=== PATIENT | male | born 2000 | race Caucasian/White ===

== ENCOUNTER 2024-08-03 09:13 | Inpatient (IN) | payer MEDICAID, OTHER ==
[~2024-08-03] VITALS: Ht 170.2 cm; Wt 70.4 kg
--- NOTE | 2024-08-03 09:55 | ED.PDOC ---
History of Present Illness HPI Comments 24-year-old male presents with a chief complaint of dizzy spells. Patient mentions that his dizziness that he feels is positional, mostly when getting up and when at work. Patient mentions that the last time was today when he experienced these episodes, and reports that he "passed out" and was "out of it" for a little while. Chief Complaint: Dizziness Time Seen by MD: 09:31 Primary Care Provider: NONE Reviewed Notes: Medications, Allergies Allergies: Uncoded Allergies: POLLEN (Allergy, Unknown, 08/03/24) Information Source: Patient Mode of Arrival: Ambulatory Severity: Moderate Timing: Days Duration: Intermittent Prehospital treatment: None Past Medical History PAST MEDICAL HISTORY: Denies Surgical History: Denies all surgeries Family History Family History: Reviewed,noncontributory to illness Social History Smoker: Non-Smoker Alcohol: Denies ETOH Use Drugs: Denies Drug Use Lives In: Home Constitutional: denies: chills, diaphoresis, fatigue, fever, malaise, sweats, weakness, others EENTM: denies: blurred vision, double vision, ear bleeding, ear discharge, ear drainage, ear pain, ear ringing, eye pain, eye redness, hearing loss, mouth pain, mouth swelling, nasal discharge, nose bleeding, nose congestion, nose pain, photophobia, tearing, throat pain, throat swelling, voice changes, others Respiratory: denies: cough, hemoptysis, orthopnea, SOB at rest, shortness of breath, SOB with excertion, stridor, wheezing, others Cardiovascular: reports: dizzy spells; denies: chest pain, diaphoresis, Dyspnea on exertion, edema, irregular heart beat, left arm pain, lightheadedness, palpitations, PND, syncope, others Gastrointestinal: denies: abdomen distended, abdominal pain, blood streaked bowels, constipated, diarrhea, dysphagia, difficulty swallowing, hematemesis, melena, nausea, poor appetite, poor fluid intake, rectal bleeding, rectal pain, vomiting, others Genitourinary: denies: burning, dysuria, flank pain, frequency, hematuria, incontinence, penile discharge, penile sore, pain, testicle pain, testicle swelling, urgency, others Neurological: denies: dizziness, fainting, headache, left sided numbness, left sided weakness, numbness, paresthesia, pre-existing deficit, right sided numbness, right sided weakness, seizure, speech problems, tingling, tremors, weakness, others Musculoskeletal: denies: back pain, gout, joint pain, joint swelling, muscle pain, muscle stiffness, neck pain, others Integumetry: denies: bruises, change in color, change in hair/nails, dryness, laceration, lesions, lumps, rash, wounds, others Allergic/Immunocompromised: denies: Difficulty Healing, Frequent Infections, Hives, Itching, others Hematologic/Lymphatic: denies: anemia, blood clots, easy bleeding, easy bruising, swollen glands, others Endocrine: denies: excessive hunger, excessive sweating, excessive thirst, excessive urination, flushing, intolerance to cold, intolerance to heat, unexplained weight gain, unexplained weight loss, others Psychiatric: denies: anxiety, bipolar disorder, depression, hopeless, panic disorder, schizophrenia, sleepless, suicidal, others All Other Systems: Reviewed and Negative Physical Exam General Appearance: No Apparent Distress, Normal HEENT: Normal ENT Inspection, Pharynx Normal, TMs Normal Neck: Full Range of Motion, Non-Tender, Normal, Normal Inspection Respiratory: Chest Non-Tender, Lungs Clear, No Accessory Muscle Use, No Respiratory Distress, Normal Breath Sounds Cardiovascular: No Edema, No JVD, No Murmur, No Gallop, Normal Peripheral Pulses, Regular Rate/Rhythm Breast Exam: Deferred Gastrointestinal: No Organomegaly, Non Tender, No Pulsatile Mass, Normal Bowel Sounds, Soft Genitalia: Deferred Pelvic: Deferred Rectal: Deferred Extremities: No calf tenderness, Normal capillary refill, Normal inspection, Normal range of motion, Non-tender, No pedal edema Musculoskeletal : Apperance: Normal Neurologic: Alert, risk control officer II-XII nml as Tested, No Motor Deficits, Normal Affect, Normal Mood, No Sensory Deficits Cerebellar Function: Normal Reflexes: Normal Skin: Dry, Normal Color, Warm Lymphatic: No Adenopathy Was a procedure done? Was a procedure done?: No Differential Dx Considerations may include: Electrolyte abnormality, ACS, cardiac arrhythmia, viral syndrome, substance abuse, dehydration X-Ray, Labs, Meds, VS Vital Signs Date Time Temp Pulse Resp B/P (MAP) Pulse Ox O2 Delivery O2 Flow Rate FiO2 08/03/24 11:24 98.7 76 18 121/75 (90) 99 98.7 5/22/25 09:28 75 08/03/24 09:26 97.9 66 18 130/96 (107) 100 97.9 Lab Test 08/03/24 10:35 08/03/24 10:15 08/03/24 09:40 08/03/24 09:24 Range/Units Troponin I High Sensitivity < 3 L < 3 L </=54 ng/L Urine Color Colorless Yellow Urine Clarity Clear Clear Urine pH 7.0 5.0-9.0 Urine Specific [place] 1.004 1.001-1.035 Urine Protein Negative Negative Urine Ketones Negative Negative Urine Blood Negative Negative /uL Urine Nitrite Negative Negative Urine Bilirubin Negative Negative Urine Urobilinogen Normal Negative mg/dL Urine Leukocyte Esterase Negative Negative /uL Urine RBC None seen 0 - 3 /hpf Urine Microscopic WBC < 1 0-3 /HPF Urine Squamous Epithelial Cells None seen <5 /hpf Urine Bacteria None seen None Seen /hpf Urine Glucose Normal Normal mg/dL Urine Opiates Screen Neg NEGATIVE Urine Fentanyl Screen Neg NEGATIVE Urine Barbiturates Screen Neg NEGATIVE Urine Phencyclidine Screen Neg NEGATIVE Urine Amphetamines Screen Neg NEGATIVE Urine Benzodiazepines Screen Neg NEGATIVE Urine Cocaine Screen Neg NEGATIVE Urine Cannabinoids Screen Pos NEGATIVE White Blood Count 9.2 4.4-10.8 10^3/uL Red Blood Count 5.38 4.5-5.90 10^6/uL Hemoglobin 16.8 13.5-17.5 g/dL Hematocrit 48.7 41.0-53.0 % Mean Corpuscular Volume 90.5 80.0-100.0 fL Mean Corpuscular Hemoglobin 31.1 28.0-32.0 pg Mean Corpuscular Hemoglobin Concent 34.4 32.0-36.0 g/dL Red Cell Distribution Width 12.4 11.8-14.3 % Platelet Count 292 140-450 10^3/uL Mean Platelet Volume 8.5 6.9-10.8 fL Neutrophils (%) (Auto) 74.8 37.0-80.0 % Lymphocytes (%) (Auto) 14.4 10.0-50.0 % Monocytes (%) (Auto) 9.2 0.0-12.0 % Eosinophils (%) (Auto) 1.1 0.0-7.0 % Basophils (%) (Auto) 0.5 0.0-2.0 % Neutrophils # (Auto) 6.9 1.6-8.6 10 ^3/uL Lymphocytes # (Auto) 1.3 0.4-5.4 10 ^3/uL Monocytes # (Auto) 0.8 0-1.3 10 ^3/uL Eosinophils # (Auto) 0.1 0-0.8 10 ^3/uL Basophils # (Auto) 0 0-0.2 10 ^3/uL Nucleated Red Blood Cells 0.0 % Sodium Level 139 136-145 mmol/L Potassium Level 3.9 3.5-5.1 mmol/L Chloride Level 101 98-107 mmol/L Carbon Dioxide Level 27 20-31 mmol/L Anion Gap 11 5-15 Blood Urea Nitrogen 11 9-23 mg/dL Creatinine 1.03 0.700-1.30 mg/dL Glomerular Filtration Rate Calc 105 >90 mL/min BUN/Creatinine Ratio 10.7 10.0-20.0 Serum Glucose 124 H 74-106 mg/dL Calcium Level 10.4 8.7-10.4 mg/dL POC Glucose 129 H 70-106 mg/dl Time of 1ST Reevaluation: 10:01 Reevaluation 1ST: Unchanged Patient Education/Counseling: Diagnosis, Treatment Family Education/Counseling: No Family Present Departure 1 Departure Time of Disposition: 12:18 (Patient presented with syncope today and should be admitted. Data: 1. I ordered and reviewed the result of at least 3 labs including a CBC, BMP, and troponin. 2. I independently interpreted the following tests: EKG which shows a sinus arrhythmia and a chest x-ray which shows benign chest and a CT head which shows benign brain.Risk:This patient has a high risk of morbidity due to further diagnostic testing or treatment and may suffer from an acute cardiac, neurologic, or infectious disorder. Rationale: Patient should be admitted to the hospital for further management.) Impression: Primary Impression: Syncope and collapse Disposition: ADMITTED INPATIENT Admit to: Med Surg Condition: Serious Critical Care Note Critical Care Time?: No Stability Stability form required: No Heart Score Heart Score: Heart Score Response (Comments) Value History N/A 0 EKG N/A 0 Age N/A 0 Risk Factors N/A 0 Troponin N/A 0 Total 0 I personally scribed for DINAH RODARTE MD ([email or web address]) on 08/03/24 at 09:55. Electronically submitted by Chris Dupont ([email or web address]). DINAH RODARTE MD August 03, 2024 09:55
[2024-08-03 10:06] LABS: Basophils # (auto) 0 10 ^3/uL (0-0.2); Basophils % (auto) 0.5 % (0.0-2.0); Eosinophils # (auto) 0.1 10 ^3/uL (0-0.8); Eosinophils % (auto) 1.1 % (0.0-7.0); Hematocrit 48.7 % (41.0-53.0); Hemoglobin 16.8 g/dL (13.5-17.5); Lymphocytes # (auto) 1.3 10 ^3/uL (0.4-5.4); Lymphocytes % (auto) 14.4 % (10.0-50.0); Mean Corpuscular Hemoglobin 31.1 pg (28.0-32.0); Mean Corpuscular Hgb Conc. 34.4 g/dL (32.0-36.0); Mean Corpuscular Volume 90.5 fL (80.0-100.0); Monocytes # (auto) 0.8 10 ^3/uL (0-1.3); Monocytes % (auto) 9.2 % (0.0-12.0); Neutrophils # (auto) 6.9 10 ^3/uL (1.6-8.6); Neutrophils % (auto) 74.8 % (37.0-80.0); Platelet Count (auto) 292 10^3/uL (140-450); Red Blood Cells 5.38 10^6/uL (4.5-5.90); Red Cell Distribution Width 12.4 % (11.8-14.3); White Blood Cell 9.2 10^3/uL (4.4-10.8)
--- NOTE | 2024-08-03 10:20 | DVH ---
CHEST RADIOGRAPH Indication: syncope Technique: Single frontal view of the chest was obtained COMPARISON: None FINDINGS: Lines and Tubes: None Lungs: Clear Pleura: No effusion. No pneumothorax. Cardiomediastinal contours: Unremarkable Bones: Unremarkable IMPRESSION: No acute disease.
--- NOTE | 2024-08-03 10:24 | DVH ---
CT HEAD WITHOUT CONTRAST INDICATION: syncope EXAM DATE: 08/03/2024 09:43 AM COMPARISON: None RADIATION DOSE: CTDIvol: 51.7 mGy, DLP: 828.9 mGy*cm PROCEDURE: CT scans of the head were obtained from the vertex to the skull base. Sagittal and coronal reconstructions were provided. All CT scans at this medical facility are performed using dose modulation techniques as appropriate t o a performed exam including the following: Automated exposure control was utilized; adjustment of th e MA and/or KV according to patient size; and use of iterative reconstruction technique. FINDINGS: The brainshows normal morphology and arnett-white matter differentiation, without intracra nial hemorrhage, extra-axial fluid collection, mass effect or acute large vessel infarct. The ventric les are normal in size. The basal cisterns are patent. The skull and visible facial bones are intact. The paranasal sinuses, mastoid air cells and middle ear cavities are well-aerated. The soft tissues of the scalp are unremarkable. IMPRESSION: No acute intracranial abnormality.
[2024-08-03 10:25] LABS: Urine Bacteria None Seen /hpf (None Seen)
[2024-08-03 10:34] LABS: Urine Blood Negative /uL (Negative); Urine Clarity Clear (Clear); Urine Color Colorless (Yellow); Urine Protein, UAD Negative (Negative); Urine Specific Gravity 1.004 (1.001-1.035); Urine Squamous Epithelial Cell None Seen /hpf (<5); Urine Urobilinogen Normal (Negative); Urine WBC < 1 /HPF (0-3)
[2024-08-03 10:35] LABS: Chloride 101 mmol/L (98-107); Potassium 3.9 mmol/L (3.5-5.1); Sodium 139 mmol/L (136-145)
[2024-08-03 10:36] LABS: Anion Gap 11 (5-15); Carbon Dioxide 27 mmol/L (20-31)
[2024-08-03 10:38] LABS: Calcium 10.4 mg/dL (8.7-10.4)
[2024-08-03 10:41] LABS: BUN/Creatinine Ratio 10.7 (10.0-20.0); Blood Urea Nitrogen 11 mg/dL (9-23); Glucose 124 mg/dL (74-106)
[2024-08-03 11:07] LABS: Amphetamine Screen, Urine Neg (NEGATIVE); Barbiturate Scree,Urine Neg (NEGATIVE); Benzodiazephine Screen, Urine Neg (NEGATIVE); Cannabinoid Screen, Urine Pos (NEGATIVE); Cocaine Screen, Urine Neg (NEGATIVE); Opiate Scree,Urine Neg (NEGATIVE); Phencyclidine Screen, Urine Neg (NEGATIVE)
--- NOTE | 2024-08-03 13:20 | DVHHP2 ---
Admitting Diagnosis: Dizziness History of Present Illness 24-year-old male presents with a chief complaint of dizzy spells. Patient mentions that his dizziness that he feels is positional, mostly when getting up and when at work. Patient mentions that the last time was today when he experienced these episodes, and reports that he "passed out" and was "out of it" for a little while. PAST MEDICAL HISTORY: Denies Surgical History: Denies all surgeries Family History: Reviewed,noncontributory to illness Social History Smoker: Non-Smoker Alcohol: Denies ETOH Use Drugs: Denies Drug Use Lives In: Home Allergies: Uncoded Allergies: POLLEN (Allergy, Unknown, 08/03/24) Current Medications Current Medications Medications (Trade) Dose Ordered Sig/Ji Route PRN Reason Start Time Stop Time Status Last Admin Sodium Chloride (Saline Lock Ns) 10 ml Q8HR IV 08/03/24 14:00 08/03/24 14:05 Docusate Sodium (Colace Capsule) 100 mg BIDPRN PRN PO FOR CONSTIPATION 08/03/24 13:30 Acetaminophen (Tylenol Tablet) 650 mg Q6HP PRN PO PAIN SCALE 1-3 OR TEMP>100.4 08/03/24 13:30 Ondansetron HCl (Zofran) 4 mg Q4HP PRN IV NAUSEA / VOMITING 08/03/24 13:30 Enoxaparin Sodium (Lovenox) 40 mg DAILY SC 08/04/24 10:00 Vital Signs Vital Signs Date Time Temp Pulse Resp B/P (MAP) Pulse Ox O2 Delivery O2 Flow Rate FiO2 08/03/24 14:10 89 16 96 Room Air* 0 21 08/03/24 13:55 98.8 115/70 (85) 98.8 Physical Exam Generally-24 year old male, sitting on chair. No apparent distress HEENT atraumatic, normocephalic Heart-regular rate and rhythm Lungs-Clear to auscultate bilaterally Abdomen soft nontender nondistended Musculoskeletal-no edema cyanosis Neuro-AO x3, no focal deficits Results Labs Test 08/03/24 13:03 08/03/24 10:15 08/03/24 09:40 08/03/24 09:24 Range/Units Troponin I High Sensitivity < 3 L </=54 ng/L Urine Color Colorless Yellow Urine Clarity Clear Clear Urine pH 7.0 5.0-9.0 Urine Specific [place] 1.004 1.001-1.035 Urine Protein Negative Negative Urine Ketones Negative Negative Urine Blood Negative Negative /uL Urine Nitrite Negative Negative Urine Bilirubin Negative Negative Urine Urobilinogen Normal Negative mg/dL Urine Leukocyte Esterase Negative Negative /uL Urine RBC None seen 0 - 3 /hpf Urine Microscopic WBC < 1 0-3 /HPF Urine Squamous Epithelial Cells None seen <5 /hpf Urine Bacteria None seen None Seen /hpf Urine Glucose Normal Normal mg/dL Urine Opiates Screen Neg NEGATIVE Urine Fentanyl Screen Neg NEGATIVE Urine Barbiturates Screen Neg NEGATIVE Urine Phencyclidine Screen Neg NEGATIVE Urine Amphetamines Screen Neg NEGATIVE Urine Benzodiazepines Screen Neg NEGATIVE Urine Cocaine Screen Neg NEGATIVE Urine Cannabinoids Screen Pos NEGATIVE White Blood Count 9.2 4.4-10.8 10^3/uL Red Blood Count 5.38 4.5-5.90 10^6/uL Hemoglobin 16.8 13.5-17.5 g/dL Hematocrit 48.7 41.0-53.0 % Mean Corpuscular Volume 90.5 80.0-100.0 fL Mean Corpuscular Hemoglobin 31.1 28.0-32.0 pg Mean Corpuscular Hemoglobin Concent 34.4 32.0-36.0 g/dL Red Cell Distribution Width 12.4 11.8-14.3 % Platelet Count 292 140-450 10^3/uL Mean Platelet Volume 8.5 6.9-10.8 fL Neutrophils (%) (Auto) 74.8 37.0-80.0 % Lymphocytes (%) (Auto) 14.4 10.0-50.0 % Monocytes (%) (Auto) 9.2 0.0-12.0 % Eosinophils (%) (Auto) 1.1 0.0-7.0 % Basophils (%) (Auto) 0.5 0.0-2.0 % Neutrophils # (Auto) 6.9 1.6-8.6 10 ^3/uL Lymphocytes # (Auto) 1.3 0.4-5.4 10 ^3/uL Monocytes # (Auto) 0.8 0-1.3 10 ^3/uL Eosinophils # (Auto) 0.1 0-0.8 10 ^3/uL Basophils # (Auto) 0 0-0.2 10 ^3/uL Nucleated Red Blood Cells 0.0 % Sodium Level 139 136-145 mmol/L Potassium Level 3.9 3.5-5.1 mmol/L Chloride Level 101 98-107 mmol/L Carbon Dioxide Level 27 20-31 mmol/L Anion Gap 11 5-15 Blood Urea Nitrogen 11 9-23 mg/dL Creatinine 1.03 0.700-1.30 mg/dL Glomerular Filtration Rate Calc 105 >90 mL/min BUN/Creatinine Ratio 10.7 10.0-20.0 Serum Glucose 124 H 74-106 mg/dL Calcium Level 10.4 8.7-10.4 mg/dL POC Glucose 129 H 70-106 mg/dl Primary Diagnosis Syncope 2' Diagnosis/Comorbidities WPW Plan Standing negative episodic hypotension 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 SW consult Check carotid Doppler to assess for cyanosis Check Echo IV fluids for hydration If symptom worsen consult Neurology Full code Lovenox for DVT prophylaxis No GI prophylaxis needed Regular diet Plan discussed with: Patient Problems List: (1) Syncope and collapse Status: Acute Date of Service: August 03, 2024 Billing Provider: DELORIS ROBBINS MD Common Visit Codes: [id number] INP/OBS CARE (MOD) DELORIS ROBBINS MD August 03, 2024 13:20
[2024-08-03] MEDS ORDERED: DOCUSATE SOD 100 MG CAP PO PRN (13:30)
[2024-08-03] MEDS ORDERED: ONDANSETRON HCL 4 MG/2 ML VIAL IV PRN (13:30)
[2024-08-03] MEDS: SODIUM CHLOR 0.9% PF (SALINE LOCK) 10ML VIAL/SYR IV SCH (14:05)
[2024-08-03 14:10] VITALS: PULSE 89; RESP 16; O2SAT 96
[2024-08-03 14:28] VITALS: BP 137/77; PULSE 75; RESP 16; TEMP 98.3; O2SAT 97
--- NOTE | 2024-08-03 14:42 | DVH ---
Carotid Duplex Clinical History: syncope Comparison: None Technique: Duplex Doppler evaluation of the extracranial carotid and vertebral arteries including color Doppler and spectral/pulsed waveform analysis was performed. Findings: RIGHT SIDE: The peak systolic velocities are 195 cm/s in the CCA, 121 cm/s in the ICA. The ICA/CCA ratio is 0.6. The external carotid artery is patent with peak systolic velocity of 131 cm/s proximally. There is appropriate antegrade flow in the right vertebral artery. LEFT SIDE: The peak systolic velocities are 121 cm/s in the CCA, 155 cm/s in the ICA. The ICA/CCA ratio is 1.3. The external carotid artery is patent with peak systolic velocity of 142 cm/s proximally. There is appropriate antegrade flow in the left vertebral artery. IMPRESSION: No hemodynamically significant stenosis noted in the right carotid system. No hemodynamically significant stenosis noted in the left carotid system. Reference: Radiology 2003; 229:340-346 Normal ICA PSV is <125 cm/sec and no plaque or intimal thickening is visible sonographically addition al criteria include ICA/CCA PSV ratio <2.0 and ICA EDV <40 cm/sec <50% ICA stenosis ICA PSV is <125 cm/sec and plaque or intimal thickening is visible sonographically additional criteria include ICA/CCA PSV ratio <2.0 and ICA EDV <40 cm/sec 50-69% ICA stenosis ICA PSV is 125-230 cm/sec and plaque is visible sonographically additional criter ia include ICA/CCA PSV ratio of 2.0-4.0 and ICA EDV of 40-100 cm/sec 70% ICA stenosis but less than near occlusion ICA PSV is >230 cm/sec and visible plaque and luminal narrowing are seen at arnett-scale and color Doppler ultrasound (the higher the Doppler parameters lie above the threshold of 230 cm/sec, the greater the likelihood of severe disease) additional criteria include ICA/CCA PSV ratio >4 and ICA EDV >100 cm/sec
[2024-08-03] MEDS: LACTATED RINGER'S 1,000 ML IV ONE (15:03)
[2024-08-03 15:07] VITALS: PULSE 75; RESP 16; O2SAT 97
[2024-08-03 16:30] VITALS: BP 132/78; PULSE 76; RESP 18; TEMP 98.2; O2SAT 98
[2024-08-03 19:40] VITALS: RESP 18; O2SAT 98
[2024-08-03 21:00] VITALS: BP 114/65; PULSE 63; RESP 18; TEMP 97.9; O2SAT 99
[2024-08-03] MEDS: ACETAMINOPHEN 325 MG TAB PO PRN (22:03)
[2024-08-04] VITALS (8 sets, daily range): BP systolic 110–143; BP diastolic 53–87; PULSE 62–80; RESP 16–18; TEMP 98–98.5; O2SAT 98–99
--- NOTE | 2024-08-04 06:13 | ECG ---
[facility] Test Date: 2024-08-03 Test Time: 09:28:01 Pat Name: PETRA BACON Department: ER Room: 0212T Gender: M Steam Tunnel Feeder: RUSSELL : 2000 Requested By: DINAH RODARTE Order Number: [id number] Reading MD: Kana Campos Measurements Intervals [place] Rate: 75 P: 11 TN: 130 QRS: 93 QRSD: 114 T: 57 QT: 380 QTc: 425 Interpretive Statements Sinus rhythm Incomplete right bundle branch block ST elev, probable normal early repol pattern Electronically Signed On 08-07-2024 11:47:24 PDT by Kana Campos Please click the below link to view image of tracing.
[2024-08-04 06:22] LABS: Alanine Aminotransferase 12 U/L (7-40); Albumin 4.4 g/dL (3.2-4.8); Alkaline Phosphatase 74 U/L (46-116); Anion Gap 9 (5-15); Calcium 9.6 mg/dL (8.7-10.4); Carbon Dioxide 28 mmol/L (20-31); Chloride 104 mmol/L (98-107); Glucose 96 mg/dL (74-106); Potassium 3.6 mmol/L (3.5-5.1); Sodium 141 mmol/L (136-145)
[2024-08-04 06:23] LABS: Bilirubin, Total 0.8 mg/dL (0.2-1.0)
[2024-08-04 06:24] LABS: Aspartate Aminotransferase 10 U/L (13-40); Blood Urea Nitrogen 8 mg/dL (9-23)
[2024-08-04 06:25] LABS: Basophils # (auto) 0 10 ^3/uL (0-0.2); Basophils % (auto) 0.5 % (0.0-2.0); Eosinophils # (auto) 0.1 10 ^3/uL (0-0.8); Eosinophils % (auto) 1.8 % (0.0-7.0); Hemoglobin 15.6 g/dL (13.5-17.5); Lymphocytes # (auto) 1.9 10 ^3/uL (0.4-5.4); Lymphocytes % (auto) 27.5 % (10.0-50.0); Mean Corpuscular Hemoglobin 31.3 pg (28.0-32.0); Mean Corpuscular Hgb Conc. 34.7 g/dL (32.0-36.0); Mean Corpuscular Volume 90.2 fL (80.0-100.0); Monocytes # (auto) 0.7 10 ^3/uL (0-1.3); Monocytes % (auto) 10.3 % (0.0-12.0); Neutrophils # (auto) 4.1 10 ^3/uL (1.6-8.6); Neutrophils % (auto) 59.9 % (37.0-80.0); Nucleated Red Blood Cells % 0.1 %; Platelet Count (auto) 281 10^3/uL (140-450); Red Blood Cells 4.99 10^6/uL (4.5-5.90); Red Cell Distribution Width 12.9 % (11.8-14.3); White Blood Cell 6.8 10^3/uL (4.4-10.8)
[2024-08-04] MEDS: ENOXAPARIN SOD 40 MG/0.4 ML SYRINGE SC SCH (08:50)
[2024-08-04 09:33] LABS: INR 1.04 (0.9-1.15); Partial Thromboplastin Time 32.5 SEC (24.5-34.5)
--- NOTE | 2024-08-04 12:01 | DVHPNRES ---
Progress Note Date Seen: August 04, 2024 Resident Creating Document: SEVERO GONZALEZ RESIDENT Has the PT tested + for MRSA If YES, has PT been informed?: No Medical Necessity Reason Pt with a Central, PICC or Fol: No Subjective Review of Systems Preethi Lucero is a 24-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 Patient reported he has been having ongoing dizziness occasionally for last 1 year when he diagnosed with WPW syndrome. 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 Patient reported it has been on and off but not constant. On my assessment patient denies head trauma, palpitations, shortness of breath, and other associated symptoms. Patient does report occasional nausea. Patient seen and examined at the bedside. Currently reporting no new symptoms. Orthostatic vitals. Patient reports: Feels better Objective vital signs Vital Sign Date Time Temp Pulse Resp B/P (MAP) Pulse Ox O2 Delivery O2 Flow Rate FiO2 08/04/24 09:00 98.5 63 16 110/53 (72) 98 98.5 08/04/24 08:05 Room Air* 0 21 Total Intake and Output 08/03/24 08/03/24 08/04/24 15:00 23:00 07:00 Intake Total 1300 ml 940 ml Balance 1300 ml 940 ml medications Current Medications Medications Dose Ordered Sig/Ji Route Start Time Stop Time Status Last Admin Dose Admin Sodium Chloride 10 ml Q8HR IV 08/03/24 14:00 08/04/24 05:28 10 ML Docusate Sodium 100 mg BIDPRN PRN PO 08/03/24 13:30 Acetaminophen 650 mg Q6HP PRN PO 08/03/24 13:30 08/04/24 08:56 650 MG Ondansetron HCl 4 mg Q4HP PRN IV 08/03/24 13:30 Enoxaparin Sodium 40 mg DAILY SC 08/04/24 10:00 Meclizine HCl 12.5 mg [id number] PRN PO 08/04/24 11:00 Examination Pt is lying on bed General Appearance: Alert, Oriented X3, Cooperative, Not in acute distress HEENT: Atraumatic, Mucous membranes moist/pink Respiratory: Clear to auscultation, Normal air movement, No added sounds Cardiovascular: Regular rate, Normal S1, Normal S2, No murmurs Abdominal: Active bowel sounds, Soft, no distention, no tenderness Extremities: No edema, Normal pulses, No tenderness/swelling Skin: No Significant rash, except past surgical scars Neuro: Normal speech, sensorimotor deficits none Psych/Mental Status: Mental status NL, Mood NL Nurse was there as sharperone during examination laboratory and microbiology Laboratory Tests 08/04/24 05:08 Test 08/04/24 05:08 Range/Units Serum Glucose 96 74-106 mg/dL Labs and/or images reviewed: Labs reviewed by me, Image(s) reviewed by me Problem List/Assessment/Plan Problem List/Assessment/Plan # Dizziness r/o arrythmia # Vertrigo # H/o WPW - Telemetry - EKG, sinus rhythm - echocardiogram - orthostatic vitals - meclizine - head CT negative - carotid Doppler no significant stenosis - cardiology consult if necessary # cannabinoid abuse disorder/dependence-counseled regarding cessation for more than 17 minutes No GI PPX No VTE PPX patient is ambulatory Regular diet Goals of care discussed with the patient for more than 29 minutes: Full code status Case discussed with Dr. Huerta, patient and nurse Plan discussed with: Patient My Orders My Orders Orders - SEVERO GONZALEZ Procedure Category Date Status Time Orthostatic Vital ORDERS 08/04/24 Transmitted Signs 10:23 Meclizine Tablet PHA 08/04/24 In Process (Antivert Tablet) 11:00 Transfer Orders XFER 08/04/24 Transmitted 11:04 Date of Service: August 04, 2024 Billing Provider: BLAS MCELROY MD Common Visit Codes: [id number] INP/OBS CARE(HIGH) SEVERO GONZALEZ RESIDENT August 04, 2024 12:01 BLAS MCELROY MD Aug 14, 2024 09:54
[2024-08-04] MEDS: MECLIZINE HCL 25 MG TAB PO PRN (19:48)
[2024-08-05] VITALS (10 sets, daily range): BP systolic 0–133; BP diastolic 52–71; PULSE 60–80; RESP 16–18; TEMP 97.6–98.7; O2SAT 95–99
--- NOTE | 2024-08-05 01:42 | DVHSR ---
APPROVED REPORT EXAM: Two-dimensional and M-mode echocardiogram with Doppler and color Doppler. Blood Pressure: 131/57 mmHg INDICATION Syncope RISK FACTORS Height: 67, Weight: 148 DIMENSIONS LVDd4.6 (3.8-5.7cm)LA (2D)3.4 (1.9-4.0cm)Aortic Root3.0 (2.0-3.7cm) LVDs2.8 (2.5-4.0cm)LA (MM) (1.9-4.0cm)Aortic Cusp Exc1.9 (1.5-2.0cm) EF (%) 70.0 (55-70%)Rt. Atrium3.4 (1.9-4.0cm)Asc. Aorta cm IVSd0.9 (0.7-1.1cm)RV (D) (1.8-2.4cm) PWd1.1 (0.7-1.1cm) Mitral Valve MitralMitral Stenosis E wave0.95m/sMV Mean GR.mmHg A wave0.62m/sMV Peak GR.mmHg E/A ratio1.52D MVAcm2 DECEL [id number] 1/2 [id number] IVRTmsDop MVA2.67cm2 Aortic Valve Aortic ValveAortic Stenosis V11.28m/Kelly Mean GR.4mmHg V21.50m/Kelly Peak GR.9mmHg LVOT Diameter2.0 (1.8-2.4cm)Doppler AVA2.68cm2 Pulmonic Valve V21.26m/s Tricuspid Valve TR Velocity2.34m/s [id number] Conclusion LV EF IS 70% NORMAL VALVES NORMAL RV SIZE NO EFFUSION STUDY IS NORMAL
[2024-08-05 06:08] LABS: Basophils # (auto) 0.1 10 ^3/uL (0-0.2); Basophils % (auto) 0.9 % (0.0-2.0); Eosinophils # (auto) 0.2 10 ^3/uL (0-0.8); Eosinophils % (auto) 3.8 % (0.0-7.0); Hematocrit 47.4 % (41.0-53.0); Hemoglobin 16.5 g/dL (13.5-17.5); Lymphocytes # (auto) 1.8 10 ^3/uL (0.4-5.4); Lymphocytes % (auto) 28.7 % (10.0-50.0); Mean Corpuscular Hemoglobin 31.5 pg (28.0-32.0); Mean Corpuscular Hgb Conc. 34.8 g/dL (32.0-36.0); Mean Corpuscular Volume 90.7 fL (80.0-100.0); Monocytes # (auto) 0.8 10 ^3/uL (0-1.3); Monocytes % (auto) 13.2 % (0.0-12.0); Neutrophils # (auto) 3.4 10 ^3/uL (1.6-8.6); Neutrophils % (auto) 53.4 % (37.0-80.0); Nucleated Red Blood Cells % 0.3 %; Platelet Count (auto) 265 10^3/uL (140-450); Red Blood Cells 5.22 10^6/uL (4.5-5.90); Red Cell Distribution Width 12.9 % (11.8-14.3); White Blood Cell 6.4 10^3/uL (4.4-10.8)
[2024-08-05 07:40] LABS: Alanine Aminotransferase 14 U/L (7-40); Albumin 4.7 g/dL (3.2-4.8); Alkaline Phosphatase 80 U/L (46-116); Anion Gap 12 (5-15); BUN/Creatinine Ratio 10.6 (10.0-20.0); Blood Urea Nitrogen 10 mg/dL (9-23); Calcium 10.2 mg/dL (8.7-10.4); Glucose 86 mg/dL (74-106); Total Protein 7.5 g/dL (5.7-8.2)
[2024-08-05 07:41] LABS: Bilirubin, Total 0.6 mg/dL (0.2-1.0)
[2024-08-05 07:46] LABS: Aspartate Aminotransferase 13 U/L (13-40); Carbon Dioxide 20 mmol/L (20-31); Chloride 106 mmol/L (98-107); Potassium 3.8 mmol/L (3.5-5.1); Sodium 138 mmol/L (136-145)
--- NOTE | 2024-08-05 19:18 | DVHPN2 ---
Subjective Feels okay Reviewed: Care Plan, H&P, Labs, Medications, Previous Orders, Radiology Changes from previous H/P or p: No Changes Objective Vitals Vital Signs Date Time Temp Pulse Resp B/P (MAP) Pulse Ox O2 Delivery O2 Flow Rate FiO2 08/05/24 17:00 98.2 62 18 117/71 (86) 98 98.2 08/05/24 08:05 Room Air* 0 21 Intake/Output Intake and Output 08/05/24 07:00 Intake Total 800 ml Balance 800 ml Intake Oral 800 ml # Voids 6 # Bowel Movements 1 General Appearance: Alert, Oriented X3, Cooperative, No acute distress HEENT: Atraumatic Lungs: Clear to auscultation Cardiovascular: Regular rate Medications Current Medications Medications Dose Ordered Sig/Ji Route Start Time Stop Time Status Last Admin Dose Admin Sodium Chloride 10 ml Q8HR IV 08/03/24 14:00 08/05/24 13:52 10 ML Docusate Sodium 100 mg BIDPRN PRN PO 08/03/24 13:30 Acetaminophen 650 mg Q6HP PRN PO 08/03/24 13:30 08/04/24 08:56 650 MG Ondansetron HCl 4 mg Q4HP PRN IV 08/03/24 13:30 Enoxaparin Sodium 40 mg DAILY SC 08/04/24 10:00 Meclizine HCl 12.5 mg [id number] PRN PO 08/04/24 11:00 08/04/24 19:48 12.5 MG Laboratory Results Laboratory Tests 08/05/24 05:15 Chemistry Test 08/05/24 05:15 Albumin 4.7 g/dL (3.2-4.8) Calcium Level 10.2 mg/dL (8.7-10.4) Total Protein 7.5 g/dL (5.7-8.2) Coagulation Test 08/05/24 13:30 D-Dimer, Quantitative < 0.19 mg/L FEU (0.0-0.49) LFT Test 08/05/24 05:15 Alanine Aminotransferase (ALT) 14 U/L (7-40) Alkaline Phosphatase 80 U/L (46-116) Aspartate Amino Transferase (AST) 13 U/L (13-40) Total Bilirubin 0.6 mg/dL (0.2-1.0) Urinalysis Test 08/03/24 10:15 Urine Color Colorless (Yellow) Urine Clarity Clear (Clear) Urine pH 7.0 (5.0-9.0) Urine Specific [place] 1.004 (1.001-1.035) Urine Protein Negative (Negative) Urine Ketones Negative (Negative) Urine Blood Negative /uL (Negative) Urine Nitrite Negative (Negative) Urine Bilirubin Negative (Negative) Urine Urobilinogen Normal mg/dL (Negative) Urine Leukocyte Esterase Negative /uL (Negative) Urine RBC None seen /hpf (0 - 3) Urine Microscopic WBC < 1 /HPF (0-3) Urine Squamous Epithelial Cells None seen /hpf (<5) Urine Bacteria None seen /hpf (None Seen) Urine Glucose Normal mg/dL (Normal) Assessment/Plan Assessment/Plan Dizziness and possible syncope 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 Plan discussed with: Patient My Orders Orders - CARLOS MORRIS MD Procedure Category Date Status Time * Cardiology Consult CONS 08/05/24 Verified 19:16 Date of Service: August 05, 2024 Billing Provider: CARLOS MORRIS MD Common Visit Codes: [id number] INP/OBS CARE(HIGH) CARLOS MORRIS MD August 05, 2024 19:18
[2024-08-06] VITALS (9 sets, daily range): BP systolic 96–125; BP diastolic 49–75; PULSE 59–85; RESP 16–18; TEMP 97.8–98.7; O2SAT 96–100
[2024-08-06 08:06] LABS: Basophils # (auto) 0.1 10 ^3/uL (0-0.2); Basophils % (auto) 0.8 % (0.0-2.0); Eosinophils # (auto) 0.2 10 ^3/uL (0-0.8); Eosinophils % (auto) 3.7 % (0.0-7.0); Hematocrit 48.2 % (41.0-53.0); Hemoglobin 16.9 g/dL (13.5-17.5); Lymphocytes # (auto) 1.7 10 ^3/uL (0.4-5.4); Lymphocytes % (auto) 25.2 % (10.0-50.0); Mean Corpuscular Hemoglobin 31.5 pg (28.0-32.0); Mean Corpuscular Hgb Conc. 35.1 g/dL (32.0-36.0); Mean Corpuscular Volume 89.6 fL (80.0-100.0); Monocytes # (auto) 0.8 10 ^3/uL (0-1.3); Monocytes % (auto) 12.4 % (0.0-12.0); Neutrophils # (auto) 3.8 10 ^3/uL (1.6-8.6); Neutrophils % (auto) 57.9 % (37.0-80.0); Nucleated Red Blood Cells % 0.2 %; Platelet Count (auto) 268 10^3/uL (140-450); Red Blood Cells 5.38 10^6/uL (4.5-5.90); Red Cell Distribution Width 12.9 % (11.8-14.3); White Blood Cell 6.6 10^3/uL (4.4-10.8)
[2024-08-06 08:26] LABS: Alanine Aminotransferase 12 U/L (7-40); Albumin 4.7 g/dL (3.2-4.8); Alkaline Phosphatase 85 U/L (46-116); Anion Gap 10 (5-15); BUN/Creatinine Ratio 14.3 (10.0-20.0); Bilirubin, Total 0.6 mg/dL (0.2-1.0); Blood Urea Nitrogen 14 mg/dL (9-23); Carbon Dioxide 27 mmol/L (20-31); Chloride 103 mmol/L (98-107); Glucose 94 mg/dL (74-106); Potassium 4.1 mmol/L (3.5-5.1); Sodium 140 mmol/L (136-145); Total Protein 7.5 g/dL (5.7-8.2)
[2024-08-06 08:27] LABS: Aspartate Aminotransferase < 8 U/L (13-40)
--- NOTE | 2024-08-06 12:41 | DVHINCON2 ---
Date of service: August 06, 2024 History of Present Illness HPI Patient is a 24-year-old gentleman who presented with loss of consciousness and dizziness. 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 He moved from [place] and has not seen any podiatric aide since. He has not been given any medications. Mentions that he does feel palpitations with dizzy episodes weekly or biweekly. Denies any injuries. Cardiology was involved for cardiac aspirates of care. Home Meds No Active Prescriptions or Reported Meds Past Medical History Others Past medical history includes reported WPW and seasonal allergies Occasionally takes Benadryl for seasonal allergy. Denies any surgical history. Does have good functional capacity. Smokes marijuana daily. Smokes cigarettes every other day. Denies any other drug abuse. Denies alcohol abuse. Denies any family history of relevance (no early in family no cardiac history and family the pacemaker in family no WPW and family) Patient Family History: Patient reports no known family medical history. Smoker: Positive Alocohol: None Drugs: Marijuana Domestic Violence: Neg Review of Systems Constitutional: Weakness Ears, Nose, & Throat: No symptom reported All Other Systems Fourteen point review of system was performed. Relevant findings as per above and as per HPI. Otherwise negative. H&P Exam Vital Signs Vital Signs Date Time Temp Pulse Resp B/P (MAP) Pulse Ox O2 Delivery O2 Flow Rate FiO2 08/06/24 08:44 97.8 71 18 116/56 (76) 100 97.8 08/06/24 08:05 Room Air* 0 21 General Appeara: Well developed, Well nourished Head Exam: Normal inspection Neck Exam: Normal inspection Eye Exam: bilateral eye PERRL Mouth: Normal Inspection Pulmonary/Respiratory: Lungs clear Cardiovascular/Chest: Normal inspection, Regular rate Peripheral Pulses: 2+ carotid (R), 2+ carotid (L), 2+ femoral (R), 2+ femoral (L), 2+ dorsalis pedis (R), 2+ dorsalis pedis (L), 2+ Radial (R), 2+ Radial (L) Abdominal Exam: Normal bowel sounds, Soft, No tenderness, No hepatospenomegaly 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 Exam: Normal hearing, PERRL Neuro/Mental St: Alert, Oriented Appearance: Appropriate appearance Eye contact/ Speech: Cooperative Thoughts/Psych: Normal thought pattern Labs/Xrays Labs Test 5/25/25 07:34 08/05/24 13:30 08/04/24 05:08 08/03/24 13:03 Range/Units White Blood Count 6.6 4.4-10.8 10^3/uL Red Blood Count 5.38 4.5-5.90 10^6/uL Hemoglobin 16.9 13.5-17.5 g/dL Hematocrit 48.2 41.0-53.0 % Mean Corpuscular Volume 89.6 80.0-100.0 fL Mean Corpuscular Hemoglobin 31.5 28.0-32.0 pg Mean Corpuscular Hemoglobin Concent 35.1 32.0-36.0 g/dL Red Cell Distribution Width 12.9 11.8-14.3 % Platelet Count 268 140-450 10^3/uL Mean Platelet Volume 8.5 6.9-10.8 fL Neutrophils (%) (Auto) 57.9 37.0-80.0 % Lymphocytes (%) (Auto) 25.2 10.0-50.0 % Monocytes (%) (Auto) 12.4 H 0.0-12.0 % Eosinophils (%) (Auto) 3.7 0.0-7.0 % Basophils (%) (Auto) 0.8 0.0-2.0 % Neutrophils # (Auto) 3.8 1.6-8.6 10 ^3/uL Lymphocytes # (Auto) 1.7 0.4-5.4 10 ^3/uL Monocytes # (Auto) 0.8 0-1.3 10 ^3/uL Eosinophils # (Auto) 0.2 0-0.8 10 ^3/uL Basophils # (Auto) 0.1 0-0.2 10 ^3/uL Nucleated Red Blood Cells 0.2 % Sodium Level 140 136-145 mmol/L Potassium Level 4.1 3.5-5.1 mmol/L Chloride Level 103 98-107 mmol/L Carbon Dioxide Level 27 20-31 mmol/L Anion Gap 10 5-15 Blood Urea Nitrogen 14 9-23 mg/dL Creatinine 0.98 0.700-1.30 mg/dL Glomerular Filtration Rate Calc 112 >90 mL/min BUN/Creatinine Ratio 14.3 10.0-20.0 Serum Glucose 94 74-106 mg/dL Calcium Level 10.0 8.7-10.4 mg/dL Total Bilirubin 0.6 0.2-1.0 mg/dL Aspartate Amino Transferase (AST) < 8 L 13-40 U/L Alanine Aminotransferase (ALT) 12 7-40 U/L Alkaline Phosphatase 85 46-116 U/L Total Protein 7.5 5.7-8.2 g/dL Albumin 4.7 3.2-4.8 g/dL D-Dimer, Quantitative < 0.19 0.0-0.49 mg/L FEU Prothrombin Time 11.0 9.3-11.8 sec Prothrombin Time INR 1.04 0.9-1.15 Activated Partial Thromboplast Time 32.5 24.5-34.5 SEC Hemoglobin A1c 4.9 <5.7 % A1C Magnesium Level 1.9 1.6-2.6 mg/dL Vitamin B12 Level 467 211-911 pg/mL Vitamin D 25-Hydroxy 31.8 30.0-100 ng/mL Thyroid Stimulating Hormone (TSH) 1.90 0.55-4.78 uIU/mL Troponin I High Sensitivity < 3 L </=54 ng/L Test 08/03/24 10:15 08/03/24 09:24 Range/Units Urine Color Colorless Yellow Urine Clarity Clear Clear Urine pH 7.0 5.0-9.0 Urine Specific [place] 1.004 1.001-1.035 Urine Protein Negative Negative Urine Ketones Negative Negative Urine Blood Negative Negative /uL Urine Nitrite Negative Negative Urine Bilirubin Negative Negative Urine Urobilinogen Normal Negative mg/dL Urine Leukocyte Esterase Negative Negative /uL Urine RBC None seen 0 - 3 /hpf Urine Microscopic WBC < 1 0-3 /HPF Urine Squamous Epithelial Cells None seen <5 /hpf Urine Bacteria None seen None Seen /hpf Urine Glucose Normal Normal mg/dL Urine Opiates Screen Neg NEGATIVE Urine Fentanyl Screen Neg NEGATIVE Urine Barbiturates Screen Neg NEGATIVE Urine Phencyclidine Screen Neg NEGATIVE Urine Amphetamines Screen Neg NEGATIVE Urine Benzodiazepines Screen Neg NEGATIVE Urine Cocaine Screen Neg NEGATIVE Urine Cannabinoids Screen Pos NEGATIVE POC Glucose 129 H 70-106 mg/dl Assessment/Plan Plan Patient is a 24-year-old gentleman who presented with loss of consciousness and dizziness. 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 He moved from [place] and has not seen any podiatric aide since. He has not been given any medications. Mentions that he does feel palpitations with dizzy episodes weekly or biweekly. Denies any injuries. Cardiology was involved for cardiac aspirates of care. Young gentleman. Not in acute distress. No JVD. Mucosa is pink and wet. No carotid bruit. No goiter. Not using accessory muscles of breathing. Lungs are clear to auscultation. Cardiac: Regular, no thrills/gallop. No murmur. Abdomen is soft. Bowel sounds positive. There is no gross mass/hepatomegaly. There is no peripheral edema. Dorsalis pedis is 2+ bilateral Past medical history includes reported WPW and seasonal allergies Occasionally takes Benadryl for seasonal allergy. Denies any surgical history. Does have good functional capacity. Smokes marijuana daily. Smokes cigarettes every other day. Denies any other drug abuse. Denies alcohol abuse. Denies any family history of relevance (no early in family no cardiac history and family the pacemaker in family no WPW and family) TSH: 1.90 D-dimer: <0.19 Troponin (high sensitive): <3 - <3 - <3 Urine drug screen was positive for cannabinoids Chest x-ray revealed: IMPRESSION: No acute disease. CT of the head revealed: IMPRESSION: No acute intracranial abnormality. Carotid duplex revealed: IMPRESSION: No hemodynamically significant stenosis noted in the right carotid system. No hemodynamically significant stenosis noted in the left carotid system. EKG reveals sinus rhythm with tall T-waves Tele reveals sinus rhythm Echocardiogram report: Patient is a 24-year-old healthy-looking gentleman presented with episode of syncope and dizziness. He mentions that he was diagnosed with WPW in [place] but has not followed up. Does not follow up with regular podiatric aide. Syncope EKG compatible with WPW (presence of delta wave) Old history of WPW, as per patient Cardiac suggestion for management: Manage on telemetry Follow-up electrolytes and kidney function test and correct abnormalities. Keep potassium above four and magnesium above two Lifestyle and risk factor modifications. Was advised to avoid Marijuana Request for exercise treadmill stress test for risk stratification EP consult/evaluation Further evaluation and management depends on the above and clinical course Thank you for consultation A total of 75 minutes was spent reviewing the patient record, examining the patient, making a diagnostic and therapeutic plan, discussing this plan with medical personnel, following up on diagnostic studies and following the patient for clinical stability excluding any and all procedures. At least 50% of this time was spent in direct, [id number] contact. Thank you for allowing me to participate in this patient's care. Further recommendations will depend on patient's clinical course. Please do not hesitate to contact me if you have any questions or concerns. This medical document was created using electronic medical record system with [employer] computerized dictation system. Although this document has been carefully reviewed, there may still be some phonetic and typographical errors. These areas are purely typographical due to the imperfection of the software programs, and do not reflect any compromise in the patient's medical care. Plan discussed with: Patient, Other (nurse) PATEL ZAMUDIO MD August 06, 2024 12:41
--- NOTE | 2024-08-06 14:27 | DVHPNRES ---
Progress Note Date Seen: August 06, 2024 Resident Creating Document: SEVERO GONZALEZ RESIDENT Has the PT tested + for MRSA If YES, has PT been informed?: No Medical Necessity Reason Pt with a Central, PICC or Fol: No Subjective Review of Systems Patient seen and examined at the bedside. Patient reported improvement in his symptoms since admission, reported no new complaints. technology consultant evaluated the patient and advised to have exercise treadmill stress test for risk stratification. Patient reports: Feels better Objective vital signs Vital Sign Date Time Temp Pulse Resp B/P (MAP) Pulse Ox O2 Delivery O2 Flow Rate FiO2 08/06/24 12:46 98.6 59 16 117/60 (79) 100 98.6 08/06/24 08:05 Room Air* 0 21 Total Intake and Output 08/05/24 08/05/24 08/06/24 15:00 23:00 07:00 Intake Total 720 ml 240 ml 700 ml Balance 720 ml 240 ml 700 ml medications Current Medications Medications Dose Ordered Sig/Ji Route Start Time Stop Time Status Last Admin Dose Admin Sodium Chloride 10 ml Q8HR IV 08/03/24 14:00 08/06/24 14:05 10 ML Docusate Sodium 100 mg BIDPRN PRN PO 08/03/24 13:30 Acetaminophen 650 mg Q6HP PRN PO 08/03/24 13:30 08/06/24 11:15 650 MG Ondansetron HCl 4 mg Q4HP PRN IV 08/03/24 13:30 Enoxaparin Sodium 40 mg DAILY SC 08/04/24 10:00 Meclizine HCl 12.5 mg [id number] PRN PO 08/04/24 11:00 08/04/24 19:48 12.5 MG Examination Pt is lying on bed General Appearance: Alert, Oriented X3, Cooperative, Not in acute distress HEENT: Atraumatic, Mucous membranes moist/pink Respiratory: Clear to auscultation, Normal air movement, No added sounds Cardiovascular: Regular rate, Normal S1, Normal S2, No murmurs Abdominal: Active bowel sounds, Soft, no distention, no tenderness Extremities: No edema, Normal pulses, No tenderness/swelling Skin: No Significant rash, except past surgical scars Neuro: Normal speech, sensorimotor deficits none Psych/Mental Status: Mental status NL, Mood NL Nurse was there as nailane during examination laboratory and microbiology Laboratory Tests 08/06/24 07:34 Test 08/06/24 07:34 Range/Units Serum Glucose 94 74-106 mg/dL Labs and/or images reviewed: Labs reviewed by me, Image(s) reviewed by me Problem List/Assessment/Plan Problem List/Assessment/Plan # Dizziness r/o arrythmia # Vertrigo # H/o WPW 3 Syncope - Telemetry - EKG, sinus rhythm - echocardiogram LVEF 70% - orthostatic vitals - meclizine - head CT negative - carotid Doppler no significant stenosis - cardiology consult exercise stress test for risk stratification likely on Wednesday - EP consult/evaluation, Further evaluation and management depends on the above and clinical course # cannabinoid abuse disorder/dependence-counseled regarding cessation for more than 17 minutes No GI PPX No VTE PPX patient is ambulatory Regular diet Goals of care discussed with the patient for more than 29 minutes: Full code status Case discussed with Dr. Morris, patient and nurse Plan discussed with: Patient My Orders My Orders Orders - SEVERO GONZALEZ RESIDENT Procedure Category Date Status Time *Consult Dr. Mckeon CONS 08/06/24 Transmitted 12:49 Dietary Evaluation Review Recommendations by RD: Protein Supplementation Comments: 1) Initiate Ensure Enlive qd. Encourage optimal PO intake 2) Follow-up with cardiology 3) Continue to monitor I&O, labs, and skin integrity Expected Outcomes/Goals: 1) appetite and labs to improve 2) f/u in 3-5 days Date of Service: August 06, 2024 Billing Provider: CARLOS MORRIS MD Common Visit Codes: [id number] INP/OBS CARE(HIGH) SEVERO GONZALEZ RESIDENT August 06, 2024 14:27 CARLOS MORRIS MD August 06, 2024 23:08
[2024-08-07] VITALS (9 sets, daily range): BP systolic 0–133; BP diastolic 52–92; PULSE 63–92; RESP 16–18; TEMP 98–99; O2SAT 96–100
[2024-08-07 07:32] LABS: Basophils # (auto) 0 10 ^3/uL (0-0.2); Basophils % (auto) 0.7 % (0.0-2.0); Eosinophils # (auto) 0.4 10 ^3/uL (0-0.8); Eosinophils % (auto) 6.2 % (0.0-7.0); Hematocrit 45.4 % (41.0-53.0); Hemoglobin 15.9 g/dL (13.5-17.5); Lymphocytes # (auto) 1.8 10 ^3/uL (0.4-5.4); Lymphocytes % (auto) 30.1 % (10.0-50.0); Mean Corpuscular Hemoglobin 31.4 pg (28.0-32.0); Mean Corpuscular Volume 89.8 fL (80.0-100.0); Monocytes # (auto) 0.8 10 ^3/uL (0-1.3); Monocytes % (auto) 14.2 % (0.0-12.0); Neutrophils # (auto) 2.9 10 ^3/uL (1.6-8.6); Neutrophils % (auto) 48.8 % (37.0-80.0); Platelet Count (auto) 278 10^3/uL (140-450); Red Blood Cells 5.06 10^6/uL (4.5-5.90); Red Cell Distribution Width 12.4 % (11.8-14.3); White Blood Cell 5.8 10^3/uL (4.4-10.8)
[2024-08-07 07:37] LABS: Alanine Aminotransferase 10 U/L (7-40); Albumin 4.5 g/dL (3.2-4.8); Alkaline Phosphatase 90 U/L (46-116); Anion Gap 9 (5-15); BUN/Creatinine Ratio 15.6 (10.0-20.0); Blood Urea Nitrogen 14 mg/dL (9-23); Carbon Dioxide 28 mmol/L (20-31); Chloride 103 mmol/L (98-107); Glucose 92 mg/dL (74-106); Sodium 140 mmol/L (136-145); Total Protein 7.1 g/dL (5.7-8.2)
[2024-08-07 07:38] LABS: Bilirubin, Total 0.3 mg/dL (0.2-1.0)
[2024-08-07 07:41] LABS: Aspartate Aminotransferase 10 U/L (13-40)
--- NOTE | 2024-08-07 10:57 | DVHPNRES ---
Progress Note Date Seen: August 07, 2024 Resident Creating Document: SEVERO GONZALEZ RESIDENT Has the PT tested + for MRSA If YES, has PT been informed?: No Medical Necessity Reason Pt with a Central, PICC or Fol: No Subjective Review of Systems Patient seen and examined at the bedside. No new complaints at this time. Stress test likely tomorrow. Patient reports: Feels better Objective vital signs Vital Sign Date Time Temp Pulse Resp B/P (MAP) Pulse Ox O2 Delivery O2 Flow Rate FiO2 08/07/24 08:41 87 118/59 (78) 08/07/24 08:40 98.7 16 97 98.7 08/07/24 08:00 Room Air* 0 21 Total Intake and Output 08/06/24 08/06/24 08/07/24 15:00 23:00 07:00 Intake Total 480 ml 480 ml 1046 ml Balance 480 ml 480 ml 1046 ml medications Current Medications Medications Dose Ordered Sig/Ji Route Start Time Stop Time Status Last Admin Dose Admin Sodium Chloride 10 ml Q8HR IV 08/03/24 14:00 08/07/24 05:33 10 ML Docusate Sodium 100 mg BIDPRN PRN PO 08/03/24 13:30 Acetaminophen 650 mg Q6HP PRN PO 08/03/24 13:30 08/06/24 21:40 650 MG Ondansetron HCl 4 mg Q4HP PRN IV 08/03/24 13:30 Enoxaparin Sodium 40 mg DAILY SC 08/04/24 10:00 Meclizine HCl 12.5 mg [id number] PRN PO 08/04/24 11:00 08/04/24 19:48 12.5 MG Examination Pt is lying on bed General Appearance: Alert, Oriented X3, Cooperative, Not in acute distress HEENT: Atraumatic, Mucous membranes moist/pink Respiratory: Clear to auscultation, Normal air movement, No added sounds Cardiovascular: Regular rate, Normal S1, Normal S2, No murmurs Abdominal: Active bowel sounds, Soft, no distention, no tenderness Extremities: No edema, Normal pulses, No tenderness/swelling Skin: No Significant rash, except past surgical scars Neuro: Normal speech, sensorimotor deficits none Psych/Mental Status: Mental status NL, Mood NL Nurse was there as ciprianoerone during examination laboratory and microbiology Laboratory Tests 08/07/24 05:41 Test 08/07/24 05:41 Range/Units Serum Glucose 92 74-106 mg/dL Labs and/or images reviewed: Labs reviewed by me, Image(s) reviewed by me Problem List/Assessment/Plan Problem List/Assessment/Plan # Dizziness r/o arrythmia # Vertrigo # H/o WPW 3 Syncope - Telemetry - EKG, sinus rhythm - echocardiogram LVEF 70% - orthostatic vitals - meclizine - head CT negative - carotid Doppler no significant stenosis - cardiology consult exercise stress test for risk stratification likely on Wednesday - EP consult/evaluation, Further evaluation and management depends on the above and clinical course # cannabinoid abuse disorder/dependence-counseled regarding cessation for more than 17 minutes No GI PPX No VTE PPX patient is ambulatory Regular diet Goals of care discussed with the patient for more than 29 minutes: Full code status Case discussed with , patient and nurse Plan discussed with: Patient My Orders My Orders Orders - SEVERO GONZALEZ RESIDENT Procedure Category Date Status Time *Consult Dr. Mckeon CONS 08/06/24 Transmitted 12:49 Dietary Evaluation Review Recommendations by RD: Protein Supplementation Comments: 1) Initiate Ensure Enlive qd. Encourage optimal PO intake 2) Follow-up with cardiology 3) Continue to monitor I&O, labs, and skin integrity Expected Outcomes/Goals: 1) appetite and labs to improve 2) f/u in 3-5 days Date of Service: August 07, 2024 Billing Provider: NEELAM AMOR MD Common Visit Codes: [id number] INP/OBS CARE(HIGH) SEVERO GONZALEZ RESIDENT August 07, 2024 10:57 NEELAM AMOR MD August 07, 2024 21:20
--- NOTE | 2024-08-07 13:36 | DVHINCON2 ---
Date of service: August 07, [address] 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 Patient himself reports he was working on a vehicle laying on his back looking upward while repairing a dashboard and felt a sudden onset of dizziness resulting in the reported syncopal event prompting further medical evaluation. Upon ED arrival, CT imaging of the Brain revealed no evidence for acute intracranial pathology. Bilateral carotid duplex was found negative for flow limiting lesions. Chest imaging revealed no evidence for acute cardiopulmonary findings. Orthostatic vital signs were found negative. Se rial HS troponin trend was found unremarkable. D-Dimer level was found normal. TSH was normal at 1.90. UDS was found positive for cannabinoids. Echocardiogram (08/04/2024) had revealed a preserved LVEF of 70% with normal chambers/valves. 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 At that time, he conveys he had performed an out-patient event monitor and was subsequently diagnosed with WPW upon analysis of the findings however conveys beyond the initial diagnosis, he has not followed up with any financial accountant thereafter nor was he placed on medication for the arrhythmia. At present, he does mention prior to current presentation that he does feel intermittent episodes of palpitations/dizziness however is the first time that had resulted in syncope. At present, denies any active chest pain. Denies any further palpitations or dizziness. Denies any further cardiac related symptoms. As the p atient presented with syncope and was found to have evidence for an accessory pathway observed by presence of delta wave concerning for WPW, Electrophysiology services were involved by primary team request for EP aspects of care. Past Medical History Past medical history includes previously reported Sherrill Parkinson White, and seasonal allergies. He does engage in daily marijuana use, and smokes cigarettes every other day. Denies use of alcohol or stimulants. Denies family history of any cardiac related disorders Echocardiogram: (08/04/2024) revealed LV EF IS 70%. NORMAL VALVES. NORMAL RV S IZE. NO EFFUSION. STUDY IS NORMAL Past Surgical History Reviewed Family History: Patient reports no known family medical history. Allergies: Uncoded Allergies: POLLEN (Allergy, Unknown, 08/03/24) Home Meds No Active Prescriptions or Reported Meds Review of Systems A 14-point review of systems is negative unless otherwise noted above Vital Signs Vital Signs Date Time Temp Pulse Resp B/P (MAP) Pulse Ox O2 Delivery O2 Flow Rate FiO2 08/07/24 08:41 87 118/59 (78) 08/07/24 08:40 98.7 16 97 98.7 08/07/24 08:00 Room Air* 0 21 Physical Exam Heart: S1 and S2 regular. The patient is in sinus rhythm. Lungs: Clear to auscultation Abdomen: Benign. Extremities: Distal pulses palpable, 2+. No evidence for peripheral edema Labs/Diagnostic Data Labs Test 08/07/24 05:41 08/05/24 13:30 08/04/24 05:08 08/03/24 13:03 Range/Units White Blood Count 5.8 4.4-10.8 10^3/uL Red Blood Count 5.06 4.5-5.90 10^6/uL Hemoglobin 15.9 13.5-17.5 g/dL Hematocrit 45.4 41.0-53.0 % Mean Corpuscular Volume 89.8 80.0-100.0 fL Mean Corpuscular Hemoglobin 31.4 28.0-32.0 pg Mean Corpuscular Hemoglobin Concent 35.0 32.0-36.0 g/dL Red Cell Distribution Width 12.4 11.8-14.3 % Platelet Count 278 140-450 10^3/uL Mean Platelet Volume 8.7 6.9-10.8 fL Neutrophils (%) (Auto) 48.8 37.0-80.0 % Lymphocytes (%) (Auto) 30.1 10.0-50.0 % Monocytes (%) (Auto) 14.2 H 0.0-12.0 % Eosinophils (%) (Auto) 6.2 0.0-7.0 % Basophils (%) (Auto) 0.7 0.0-2.0 % Neutrophils # (Auto) 2.9 1.6-8.6 10 ^3/uL Lymphocytes # (Auto) 1.8 0.4-5.4 10 ^3/uL Monocytes # (Auto) 0.8 0-1.3 10 ^3/uL Eosinophils # (Auto) 0.4 0-0.8 10 ^3/uL Basophils # (Auto) 0 0-0.2 10 ^3/uL Nucleated Red Blood Cells 0.0 % Sodium Level 140 136-145 mmol/L Potassium Level 4.0 3.5-5.1 mmol/L Chloride Level 103 98-107 mmol/L Carbon Dioxide Level 28 20-31 mmol/L Anion Gap 9 5-15 Blood Urea Nitrogen 14 9-23 mg/dL Creatinine 0.90 0.700-1.30 mg/dL Glomerular Filtration Rate Calc 124 >90 mL/min BUN/Creatinine Ratio 15.6 10.0-20.0 Serum Glucose 92 74-106 mg/dL Calcium Level 10.0 8.7-10.4 mg/dL Total Bilirubin 0.3 0.2-1.0 mg/dL Aspartate Amino Transferase (AST) 10 L 13-40 U/L Alanine Aminotransferase (ALT) 10 7-40 U/L Alkaline Phosphatase 90 46-116 U/L Total Protein 7.1 5.7-8.2 g/dL Albumin 4.5 3.2-4.8 g/dL D-Dimer, Quantitative < 0.19 0.0-0.49 mg/L FEU Prothrombin Time 11.0 9.3-11.8 sec Prothrombin Time INR 1.04 0.9-1.15 Activated Partial Thromboplast Time 32.5 24.5-34.5 SEC Hemoglobin A1c 4.9 <5.7 % A1C Magnesium Level 1.9 1.6-2.6 mg/dL Vitamin B12 Level 467 211-911 pg/mL Vitamin D 25-Hydroxy 31.8 30.0-100 ng/mL Thyroid Stimulating Hormone (TSH) 1.90 0.55-4.78 uIU/mL Troponin I High Sensitivity < 3 L </=54 ng/L Test 08/03/24 10:15 08/03/24 09:24 Range/Units Urine Color Colorless Yellow Urine Clarity Clear Clear Urine pH 7.0 5.0-9.0 Urine Specific [place] 1.004 1.001-1.035 Urine Protein Negative Negative Urine Ketones Negative Negative Urine Blood Negative Negative /uL Urine Nitrite Negative Negative Urine Bilirubin Negative Negative Urine Urobilinogen Normal Negative mg/dL Urine Leukocyte Esterase Negative Negative /uL Urine RBC None seen 0 - 3 /hpf Urine Microscopic WBC < 1 0-3 /HPF Urine Squamous Epithelial Cells None seen <5 /hpf Urine Bacteria None seen None Seen /hpf Urine Glucose Normal Normal mg/dL Urine Opiates Screen Neg NEGATIVE Urine Fentanyl Screen Neg NEGATIVE Urine Barbiturates Screen Neg NEGATIVE Urine Phencyclidine Screen Neg NEGATIVE Urine Amphetamines Screen Neg NEGATIVE Urine Benzodiazepines Screen Neg NEGATIVE Urine Cocaine Screen Neg NEGATIVE Urine Cannabinoids Screen Pos NEGATIVE POC Glucose 129 H 70-106 mg/dl Plan/Recommendation ASSESSMENT: This is a 24-year old male who initially presented with reported dizziness and questionable loss of consciousness. Patient himself reports he was working on a vehicle laying on his back looking upward while repairing a dashboard and felt a sudden onset of dizziness resulting in the reported syncopal event prompting further medical evaluation. Upon ED arrival, CT imaging of the Brain revealed no evidence for acute intracranial pathology. Bilateral carotid duplex was found negative for flow limiting lesions. Chest imaging revealed no evidence for acute cardiopulmonary findings. Orthostatic vital signs were found negative. Serial HS troponin trend was found unremarkable. D-Dimer level was found normal. TSH was normal at 1.90. UDS was found positive for cannabinoids. Echocardiogram (08/04/2024) had revealed a preserved LVEF of 70% with normal chambers/valves. 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 At that time, he conveys he had performed an out-patient event monitor and was subsequently diagnosed with WPW upon analysis of the findings however conveys beyond the initial diagnosis, he has not followed up with any financial accountant thereafter nor was he placed on medication for the arrhythmia. At present, he does mention prior to current presentation that he does feel intermittent episodes of palpitations/dizziness however this is the first time that had resulted in syncope. At present, denies any active chest pain. Denies any further palpitations or dizziness. Denies any further cardiac related symptoms. As the patient presented with syncope and was found to have evidence for an accessory pathway observed by presence of delta wave concerning for WPW, Electrophysiology services were involved by primary team request for EP aspects of care. Past medical history includes previously reported Sherrill Parkinson White, and seasonal allergies. He does engage in daily marijuana use, and smokes cigarettes every other day. Denies use of alcohol or stimulants. Denies family history of any cardiac related disorders Echocardiogram: (08/04/2024) revealed LV EF IS 70%. NORMAL VALVES. NORMAL RV SIZE. NO EFFUSION. STUDY IS NORMAL Syncope (mechanism unclear), possible vasovagal versus arrhythmia-mediated Evidence for accessory pathway (Delta Wave) Reported history of Sherrill Parkinson White Nicotine dependence Marijuana abuse ELECTROPHYSIOLOGY SUGGESTIONS FOR MANAGEMENT: Agree with plan of stress EKG in an attempt to provoke any antegrade or retrograde arrhythmias over the pathway Patient will need to undergo long-term out-patient monitoring upon discharge to assess for any occult arrhythmias Patient will need to follow up with out-patient cardiology/electrophysiology services for continued management Proceed with close rate and rhythm surveillance during the interim Counseled on importance of avoiding caffeine and stimulants Proceed with close hemodynamic surveillance Proceed with optimized blood pressure control Start Toprol XL 12.5mg once daily (for now) Start Flecainide 50mg twice daily (for now) Sustain Magnesium level greater than 2.0 Sustain Potassium level greater than 4.0 Follow up renal function and electrolytes Remainder of cardiac management as per Interventional Cardiology Management of co-morbidities as per primary team Counseled on importance of nicotine cessation Counseled on importance of drug cessation Management in telemetry Follow up [employer] sales consultant recommendations Will proceed to follow from an EP perspective Further recommendations per clinical progression All available diagnostic labs, EKG's, and images were personally reviewed Patient's status, findings, and plan of care was reviewed and discussed with supervising physician Dr. Mckeon, who is in agreement with current plan of care. Plan of care discussed with and agreed upon by patient / family / primary RN Prognosis: Guarded Thank you for allowing me to participate in the care of this patient. Further recommendations based on patients clinical course and progression, primary attending, and other consultants. Will continue to follow with primary attending. If you have any questions or concerns, please do not hesitate to contact me. A total of 75 minutes was spent reviewing the patient record, examining the patient, making a diagnostic and therapeutic plan, discussing this plan with medical personnel, following up on diagnostic studies and following the patient for clinical stability excluding any and all procedures. At least 50% of this time was spent in direct, [id number] contact. Plan discussed with: Patient (Patient and Primary RN ) KHANG HUTSON CERTIFIER August 07, 2024 13:36
[2024-08-07] MEDS: FLECAINIDE ACETATE 50 MG TAB PO SCH (21:43)
[2024-08-08] VITALS (10 sets, daily range): BP systolic 111–142; BP diastolic 61–83; PULSE 66–79; RESP 15–18; TEMP 98.1–98.3; O2SAT 97–100
[2024-08-08 06:29] LABS: Basophils # (auto) 0 10 ^3/uL (0-0.2); Basophils % (auto) 0.6 % (0.0-2.0); Eosinophils # (auto) 0.4 10 ^3/uL (0-0.8); Eosinophils % (auto) 5.5 % (0.0-7.0); Hematocrit 45.8 % (41.0-53.0); Lymphocytes # (auto) 1.9 10 ^3/uL (0.4-5.4); Lymphocytes % (auto) 28.2 % (10.0-50.0); Mean Corpuscular Hemoglobin 31.6 pg (28.0-32.0); Mean Corpuscular Volume 90.4 fL (80.0-100.0); Monocytes # (auto) 0.8 10 ^3/uL (0-1.3); Monocytes % (auto) 12.9 % (0.0-12.0); Neutrophils # (auto) 3.5 10 ^3/uL (1.6-8.6); Neutrophils % (auto) 52.8 % (37.0-80.0); Nucleated Red Blood Cells % 0.1 %; Platelet Count (auto) 264 10^3/uL (140-450); Red Blood Cells 5.07 10^6/uL (4.5-5.90); Red Cell Distribution Width 12.8 % (11.8-14.3); White Blood Cell 6.6 10^3/uL (4.4-10.8)
[2024-08-08 06:43] LABS: Alanine Aminotransferase 10 U/L (7-40); Albumin 4.6 g/dL (3.2-4.8); Alkaline Phosphatase 83 U/L (46-116); Anion Gap 9 (5-15); Aspartate Aminotransferase 12 U/L (13-40); BUN/Creatinine Ratio 15.1 (10.0-20.0); Bilirubin, Total 0.3 mg/dL (0.2-1.0); Blood Urea Nitrogen 14 mg/dL (9-23); Carbon Dioxide 30 mmol/L (20-31); Chloride 101 mmol/L (98-107); Glucose 90 mg/dL (74-106); Potassium 4.1 mmol/L (3.5-5.1); Sodium 140 mmol/L (136-145); Total Protein 7.2 g/dL (5.7-8.2)
--- NOTE | 2024-08-08 08:51 | DVHCARD ---
Cardiology Stress Test Workshe Treadmill Stress Test [place] Referring MD: MD Silvestre Protocol: Duane (without cardiolite) Target heart Rate:@85%: 168 Percent MPHR: 198 METS: 10.10 Resting Heart rate: 79 Resting Blood Pressure: 142/71 Exercise Heart Rate: 127 Exercise Blood Pressure: 178/50 Reason for Termination of Test: Completion of Protocol Baseline EKG: NSR Stress EKG: Sinus tachycardia Functional Capacity: Good Normal Heart Rate Response: Adequate Blood Pressure Response: Hypertensive Clinical response: Non-ischemic Arrhythmia?: No Cardiolite Injected?: No ST-T Changes: Non/Minimal Probability of Inducible Ische: Low Comments: Uneventful Duane protocol Date of Service: August 08, 2024 Billing Provider: MABEL DE LA TORRE Cardiology Common Codes: PROCEDURE ONLY Treadmill w/o Cardiolite: [id number], INTERP, RPT MABEL DE LA TORRE August 08, 2024 08:51
--- NOTE | 2024-08-08 09:00 | DVHPN2 ---
Consult Progress Note Date Seen: August 08, 2024 Subjective Review of Systems: CVS:Normal, RESPIRATORY:Normal, NEURO:Normal Objective vital signs Vital Sign Date Time Temp Pulse Resp B/P (MAP) Pulse Ox O2 Delivery O2 Flow Rate FiO2 08/08/24 08:00 66 17 97 Room Air* 0 21 08/08/24 05:00 98.1 129/83 (98) 98.1 Total Intake and Output 08/07/24 08/07/24 08/08/24 14:59 22:59 06:59 Intake Total 480 ml 800 ml 500 ml Balance 480 ml 800 ml 500 ml medications Current Medications Medications Dose Ordered Sig/Ji Route Start Time Stop Time Status Last Admin Dose Admin Sodium Chloride 10 ml Q8HR IV 08/03/24 14:00 08/08/24 06:00 10 ML Docusate Sodium 100 mg BIDPRN PRN PO 08/03/24 13:30 Acetaminophen 650 mg Q6HP PRN PO 08/03/24 13:30 08/06/24 21:40 650 MG Ondansetron HCl 4 mg Q4HP PRN IV 08/03/24 13:30 Enoxaparin Sodium 40 mg DAILY SC 08/04/24 10:00 Meclizine HCl 12.5 mg [id number] PRN PO 08/04/24 11:00 08/04/24 19:48 12.5 MG Metoprolol Succinate 12.5 mg DAILY PO 08/08/24 10:00 Flecainide Acetate 50 mg Q12HR PO 08/07/24 22:00 08/07/24 21:43 50 MG Examination: LUNGS:Normal, CVS:Normal, NEURO:Normal laboratory and microbiology Laboratory Tests 08/08/24 05:09 Test 08/08/24 05:09 Range/Units Serum Glucose 90 74-106 mg/dL Problem List/Assessment/Plan Problem List/Assessment/Plan Patient is a 24-year-old healthy-looking gentleman presented with episode of syncope and dizziness. He mentions that he was diagnosed with WPW in [place] 1.5 years ago but has not followed up. Does not follow up with regular field representative. Syncope EKG compatible with WPW (presence of delta wave) Old history of WPW, as per patient Cardiac suggestion for management: (Dr. Rivers) * Follow-up electrolytes and kidney function test and correct abnormalities. Keep potassium above four and magnesium above two * Lifestyle and risk factor modifications: advised to avoid Marijuana/nicotine * Treadmill stress test for risk stratification * Completed, uneventful. See report * Echocardiogram report: LVEF 70%. Normal size, normal valves. No effusion. Study is normal * EP consult/evaluation & recommendations There is no further cardiac workup indicated at this time. Patient is to follow-up with EP as per recommendations given. Kindly call with any questions or concerns. Thank you for allowing us to participate in this patient's care. This medical document was created using an electronic medical record system with voice recognition software and computerized dictation system. Although this document has been carefully reviewed, there might still be some phonetic and typographical errors. Occasional wrong-word or ``sound-alike substitutions may have occurred due to the inherent limitations of voice recognition software. These areas are purely typographical due to imperfections of the software programs and do not reflect any compromise in the patient's medical care. Please read the chart carefully and recognize, using context, where these substitutions have occurred. Plan discussed with: Patient, Other Dietary Evaluation Review Recommendations by RD: Protein Supplementation Comments: 1) Initiate Ensure Enlive qd. Encourage optimal PO intake 2) Follow-up with cardiology 3) Continue to monitor I&O, labs, and skin integrity Expected Outcomes/Goals: 1) appetite and labs to improve 2) f/u in 3-5 days Date of Service: August 08, 2024 Billing Provider: MABEL DE LA TORRE Cardiology Common Codes: [id number] HOSP CARE(High MABEL DE LA TORRE August 08, 2024 08:59
[2024-08-08] MEDS: METOPROLOL SUCCINATE XL 50 MG TAB PO SCH (09:10)
--- NOTE | 2024-08-08 09:15 | DVHPN2 ---
Progress Note - Dictate Date Seen: August 08, 2024 Has the PT tested + for MRSA If YES, has PT been informed?: No Medical Necessity Reason Pt with a Central, PICC or Fol: No Subjective Seen and examined at the bedside within telemetry. Maintaining sinus rhythm upon telemetry review. No overnight events. Remains stable from an EP perspective. Chart reviewed. vital signs Vital Sign Date Time Temp Pulse Resp B/P (MAP) Pulse Ox O2 Delivery O2 Flow Rate FiO2 08/08/24 09:10 66 118/61 08/08/24 09:05 18 98 08/08/24 09:02 98.1 98.1 08/08/24 08:00 Room Air* 0 21 Total Intake and Output 08/07/24 08/07/24 08/08/24 15:00 23:00 07:00 Intake Total 480 ml 800 ml 500 ml Balance 480 ml 800 ml 500 ml medications Current Medications Medications Dose Ordered Sig/Ji Route Start Time Stop Time Status Last Admin Dose Admin Sodium Chloride 10 ml Q8HR IV 08/03/24 14:00 08/08/24 06:00 10 ML Docusate Sodium 100 mg BIDPRN PRN PO 08/03/24 13:30 Acetaminophen 650 mg Q6HP PRN PO 08/03/24 13:30 08/06/24 21:40 650 MG Ondansetron HCl 4 mg Q4HP PRN IV 08/03/24 13:30 Enoxaparin Sodium 40 mg DAILY SC 08/04/24 10:00 Meclizine HCl 12.5 mg [id number] PRN PO 08/04/24 11:00 08/04/24 19:48 12.5 MG Metoprolol Succinate 12.5 mg DAILY PO 08/08/24 10:00 08/08/24 09:10 12.5 MG Flecainide Acetate 50 mg Q12HR PO 08/07/24 22:00 08/08/24 09:10 50 MG laboratory and microbiology Laboratory Tests 08/08/24 05:09 Test 08/08/24 05:09 Range/Units Serum Glucose 90 74-106 mg/dL Assessment/Plan ASSESSMENT: This is a 24-year old male who initially presented with reported dizziness and questionable loss of consciousness. Patient himself reports he was working on a vehicle laying on his back looking upward while repairing a dashboard and felt a sudden onset of dizziness resulting in the reported syncopal event prompting further medical evaluation. Upon ED arrival, CT imaging of the Brain revealed no evidence for acute intracranial pathology. Bilateral carotid duplex was found negative for flow limiting lesions. Chest imaging revealed no evidence for acute cardiopulmonary findings. Orthostatic vital signs were found negative. Serial HS troponin trend was found unremarkable. D-Dimer level was found normal. TSH was normal at 1.90. UDS was found positive for cannabinoids. Echocardiogram (08/04/2024) had revealed a preserved LVEF of 70% with normal chambers/valves. 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 At that time, he conveys he had performed an out-patient event monitor and was subsequently diagnosed with WPW upon analysis of the findings however conveys beyond the initial diagnosis, he has not followed up with any case liner thereafter nor was he placed on medication for the arrhythmia. At present, he does mention prior to current presentation that he does feel intermittent episodes of palpitations/dizziness however this is the first time that had resulted in syncope. At present, denies any active chest pain. Denies any further palpitations or dizziness. Denies any further cardiac related symptoms. As the patient presented with syncope and was found to have evidence for an accessory pathway observed by presence of delta wave concerning for WPW, Electrophysiology services were involved by primary team request for EP aspects of care. Past medical history includes previously reported Sherrill Parkinson White, and seasonal allergies. He does engage in daily marijuana use, and smokes cigarettes every other day. Denies use of alcohol or stimulants. Denies family history of any cardiac related disorders Echocardiogram: (08/04/2024) revealed LV EF IS 70%. NORMAL VALVES. NORMAL RV SIZE. NO EFFUSION. STUDY IS NORMAL Stress EKG revealed no evidence for ischemia or arrhythmia at submaximal level of exercise. Syncope (mechanism unclear), possible vasovagal versus arrhythmia-mediated Evidence for accessory pathway (Delta Wave) Reported history of Sherrill Parkinson White Nicotine dependence Marijuana abuse ELECTROPHYSIOLOGY SUGGESTIONS FOR MANAGEMENT: At this point, etiology of unexplained syncope is not clear, patient himself did not mention palpitations prior to syncopal event which questions possible vasovagal etiology Patient will need to undergo long-term out-patient monitoring upon discharge to assess for any occult arrhythmias that could provoke syncope Patient will need to follow up with out-patient cardiology/electrophysiology services for continued management Proceed with close rate and rhythm surveillance during the interim Counseled on importance of avoiding caffeine and stimulants Encourage to increase/maximize oral fluid intake Proceed with close hemodynamic surveillance Proceed with optimized blood pressure control Started Toprol XL 12.5mg once daily (for now) Started Flecainide 50mg twice daily (for now) Sustain Magnesium level greater than 2.0 Sustain Potassium level greater than 4.0 Follow up renal function and electrolytes Remainder of cardiac management as per Interventional Cardiology Management of co-morbidities as per primary team Counseled on importance of nicotine cessation Counseled on importance of drug cessation Management in telemetry Follow up sr technical sales consultant recommendations Will proceed to follow from an EP perspective Further recommendations per clinical progression All available diagnostic labs, EKG's, and images were personally reviewed Patient's status, findings, and plan of care was reviewed and discussed with supervising physician Dr. Mckeon, who is in agreement with current plan of care. Plan of care discussed with and agreed upon by patient / family / primary RN Prognosis: Guarded Thank you for allowing me to participate in the care of this patient. Further recommendations based on patients clinical course and progression, primary attending, and other consultants. Will continue to follow with primary attending. If you have any questions or concerns, please do not hesitate to contact me. A total of 75 minutes was spent reviewing the patient record, examining the patient, making a diagnostic and therapeutic plan, discussing this plan with medical personnel, following up on diagnostic studies and following the patient for clinical stability excluding any and all procedures. At least 50% of this time was spent in direct, [id number] contact. Dietary Evaluation Review Recommendations by RD: Protein Supplementation Comments: 1) Initiate Ensure Enlive qd. Encourage optimal PO intake 2) Follow-up with cardiology 3) Continue to monitor I&O, labs, and skin integrity Expected Outcomes/Goals: 1) appetite and labs to improve 2) f/u in 3-5 days Plan discussed with: Patient (Patient and Primary RN ) HARESHKHANGAVANI COLLINS August 08, 2024 09:15
--- NOTE | 2024-08-08 15:07 | DVHDSRES ---
Discharge Summary Date of Admission Resident Creating Document: SEVERO GONZALEZ RESIDENT August 03, 2024 at 13:20 Date of Discharge: August 08, 2024 Admitting Diagnosis Syncope Labs/Diagnostic Data: Laboratory Results Test 08/08/24 05:09 08/05/24 13:30 08/04/24 05:08 08/03/24 13:03 White Blood Count 6.6 10^3/uL (4.4-10.8) Red Blood Count 5.07 10^6/uL (4.5-5.90) Hemoglobin 16.0 g/dL (13.5-17.5) Hematocrit 45.8 % (41.0-53.0) Mean Corpuscular Volume 90.4 fL (80.0-100.0) Mean Corpuscular Hemoglobin 31.6 pg (28.0-32.0) Mean Corpuscular Hemoglobin Concent 35.0 g/dL (32.0-36.0) Red Cell Distribution Width 12.8 % (11.8-14.3) Platelet Count 264 10^3/uL (140-450) Mean Platelet Volume 8.7 fL (6.9-10.8) Neutrophils (%) (Auto) 52.8 % (37.0-80.0) Lymphocytes (%) (Auto) 28.2 % (10.0-50.0) Monocytes (%) (Auto) 12.9 % (0.0-12.0) Eosinophils (%) (Auto) 5.5 % (0.0-7.0) Basophils (%) (Auto) 0.6 % (0.0-2.0) Neutrophils # (Auto) 3.5 10 ^3/uL (1.6-8.6) Lymphocytes # (Auto) 1.9 10 ^3/uL (0.4-5.4) Monocytes # (Auto) 0.8 10 ^3/uL (0-1.3) Eosinophils # (Auto) 0.4 10 ^3/uL (0-0.8) Basophils # (Auto) 0 10 ^3/uL (0-0.2) Nucleated Red Blood Cells 0.1 % Sodium Level 140 mmol/L (136-145) Potassium Level 4.1 mmol/L (3.5-5.1) Chloride Level 101 mmol/L (98-107) Carbon Dioxide Level 30 mmol/L (20-31) Anion Gap 9 (5-15) Blood Urea Nitrogen 14 mg/dL (9-23) Creatinine 0.93 mg/dL (0.700-1.30) Glomerular Filtration Rate Calc 119 mL/min (>90) BUN/Creatinine Ratio 15.1 (10.0-20.0) Serum Glucose 90 mg/dL (74-106) Calcium Level 10.0 mg/dL (8.7-10.4) Total Bilirubin 0.3 mg/dL (0.2-1.0) Aspartate Amino Transferase (AST) 12 U/L (13-40) Alanine Aminotransferase (ALT) 10 U/L (7-40) Alkaline Phosphatase 83 U/L (46-116) Total Protein 7.2 g/dL (5.7-8.2) Albumin 4.6 g/dL (3.2-4.8) D-Dimer, Quantitative < 0.19 mg/L FEU (0.0-0.49) Prothrombin Time 11.0 sec (9.3-11.8) Prothrombin Time INR 1.04 (0.9-1.15) Activated Partial Thromboplast Time 32.5 SEC (24.5-34.5) Hemoglobin A1c 4.9 % A1C (<5.7) Magnesium Level 1.9 mg/dL (1.6-2.6) Vitamin B12 Level 467 pg/mL (211-911) Vitamin D 25-Hydroxy 31.8 ng/mL (30.0-100) Thyroid Stimulating Hormone (TSH) 1.90 uIU/mL (0.55-4.78) Troponin I High Sensitivity < 3 ng/L (</=54) Test 08/03/24 10:15 08/03/24 09:24 Urine Color Colorless (Yellow) Urine Clarity Clear (Clear) Urine pH 7.0 (5.0-9.0) Urine Specific Brilliant 1.004 (1.001-1.035) Urine Protein Negative (Negative) Urine Ketones Negative (Negative) Urine Blood Negative /uL (Negative) Urine Nitrite Negative (Negative) Urine Bilirubin Negative (Negative) Urine Urobilinogen Normal mg/dL (Negative) Urine Leukocyte Esterase Negative /uL (Negative) Urine RBC None seen /hpf (0 - 3) Urine Microscopic WBC < 1 /HPF (0-3) Urine Squamous Epithelial Cells None seen /hpf (<5) Urine Bacteria None seen /hpf (None Seen) Urine Glucose Normal mg/dL (Normal) Urine Opiates Screen Neg (NEGATIVE) Urine Fentanyl Screen Neg (NEGATIVE) Urine Barbiturates Screen Neg (NEGATIVE) Urine Phencyclidine Screen Neg (NEGATIVE) Urine Amphetamines Screen Neg (NEGATIVE) Urine Benzodiazepines Screen Neg (NEGATIVE) Urine Cocaine Screen Neg (NEGATIVE) Urine Cannabinoids Screen Pos (NEGATIVE) POC Glucose 129 mg/dl (70-106) Other Laboratory Tests 08/08/24 05:09 Brief Hx & Hospital Course: Preethi Lucero is a 24-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 Patient reported he has been having ongoing dizziness occasionally for last 1 year when he diagnosed with WPW syndrome. 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 Patient reported it has been on and off but not constant. On my assessment patient denies head trauma, palpitations, shortness of breath, and other associated symptoms. Patient does report occasional nausea. The patient presented with an episode of syncope, with differential considerations including vasovagal etiology versus arrhythmia-mediated causes. Initial evaluation included orthostatic vital signs and a head CT, which was negative for acute pathology. Carotid Doppler studies revealed no significant stenosis. The patient reported dizziness, but vertigo was ruled out. 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 The patient was prescribed Meclizine for symptomatic relief. . A treadmill stress test was completed without complications, and an echocardiogram showed a normal study with a left ventricular ejection fraction (LVEF) of 70%, normal chamber sizes, and no valvular abnormalities or pericardial effusion. Electrophysiology (EP) consultation was obtained, and no further cardiac workup was deemed necessary at this time. The patient is advised to follow up with EP as per their recommendations. Cardiology was consulted and provided a comprehensive evaluation. Recommendations included lifestyle and risk factor modifications, specifically advising cessation of marijuana and nicotine use. The patient was counseled on substance use, including cannabinoid abuse disorder, with a counseling session lasting over 17 minutes. patient condition was improved, hemodynamically stable and in condition to be discharged home and advised to follow up withelectrophysiologist on outpatient for further workup of WPW. Pt is lying on bed General Appearance: Alert, Oriented X3, Cooperative, Not in acute distress HEENT: Atraumatic, Mucous membranes moist/pink Respiratory: Clear to auscultation, Normal air movement, No added sounds Cardiovascular: Regular rate, Normal S1, Normal S2, No murmurs Abdominal: Active bowel sounds, Soft, no distention, no tenderness Extremities: No edema, Normal pulses, No tenderness/swelling Skin: No Significant rash, except past surgical scars Neuro: Normal speech, sensorimotor deficits none Psych/Mental Status: Mental status NL, Mood NL Nurse was there as sharperone during examination Operations or Procedures Cardiology Stress Test [place] Treadmill Stress Test [place] Referring MD: MD Silvestre Protocol: Duane (without cardiolite) Target heart Rate:@85%: 168 Percent MPHR: 198 METS: 10.10 Resting Heart rate: 79 Resting Blood Pressure: 142/71 Exercise Heart Rate: 127 Exercise Blood Pressure: 178/50 Reason for Termination of Test: Completion of Protocol Baseline EKG: NSR Stress EKG: Sinus tachycardia Functional Capacity: Good Normal Heart Rate Response: Adequate Blood Pressure Response: Hypertensive Clinical response: Non-ischemic Arrhythmia?: No Cardiolite Injected?: No ST-T Changes: Non/Minimal Probability of Inducible Ische: Low Comments: Uneventful Duane protocol Carotid Doppler: No significant stenosis noted on right or left carotid systems Head CT: No acute intracranial abnormalities Echocardiogram:Conclusion LV EF IS 70% NORMAL VALVES NORMAL RV SIZE NO EFFUSION STUDY IS NORMAL Condition at Discharge: Stable Final Diagnosis/Problems List Syncope possible vasovagal versus arrhythmia-mediated- outpatient follow up Dizziness Ruled out vertigo Evidence for accessory pathway (Delta Wave) HxWolff Parkinson White Nicotine dependence Marijuana abuse Discharge Disposition: Home Discharge Instruct/Medications Diet: Cardiac 2g Na,low cholest Activity: No Restrictions, As Tolerated Follow Up/Referral: PCP Ditch Cleaner Medications: per emr Discharge Statement: "Patient was advised to return to the ER or call 911 if any headaches, dizziness, shortness of breath, chest pain, abdominal pain, bleeding, fevers, or worsening of medical condition. Patient was counseled about treatment plan, medications, possible side effects, patientverbalized understanding. All questions were answered to the best of my ability. This discharge took greater then 30 minutes in planning, reviewing documentation, counseling the patient, and discussing with other team members." ASSESSMENT ASSESSMENT Assessment Syncope possible vasovagal versus arrhythmia-mediated- outpatient follow up Dizziness Ruled out vertigo Evidence for accessory pathway (Delta Wave) HxWolff Parkinson White Nicotine dependence Marijuana abuse Date of Service: August 08, 2024 Billing Provider: NEELAM AMOR MD Common Visit Codes: 60203-[facility]/OBS DISCH DAY >30min SEVERO GONZALEZ RESIDENT August 08, 2024 15:07 NEELAM AMOR MD August 08, 2024 19:51
[2024-08-08] MEDS ORDERED: FLE50T PO (16:14)
[2024-08-08] MEDS ORDERED: METO-6 PO (16:14)
== END 2024-08-08 16:35 | disposition home or self-care (01) | DRG 201 ==
LOC: ER 09:13 → OVERFLOW 13:20 → CENTRAL 14:41 → TELE-CENTR 08-04 11:28
PROVIDERS: ADMIT Internal Medicine Geriatric Medicine; ATTEND Internal Medicine Geriatric Medicine
DX: I49.8 Other specified cardiac arrhythmias (principal); F12.10 Cannabis abuse, uncomplicated; I45.6 Pre-excitation syndrome; F17.210 Nicotine dependence, cigarettes, uncomplicated; Z91.048 Other nonmedicinal substance allergy status; Z79.899 Other long term (current) drug therapy
CPT/HCPCS: 36415; 70450; 71045; 80048; 80053; 80307; 81001; 82306; 82607; 82962; 83036; 83735; 84443; 84484; 85025; 85379; 85610; 85730; 93005; 93017; 93306; 93886; G0378